=== PATIENT | male | born 1965 | race Caucasian/White ===

== ENCOUNTER 2018-02-28 07:32 | Day surgery (SDC) | payer OTHER ==
[~2018-02-28] VITALS: Ht 175.3 cm; Wt 100.2 kg
[~2018-02-28 07:32] MED LIST: HYDACE5; HYDACE5 PO; LEVFLO500 PO; LISI20 PO; OXYACE5T PO; TYLENOL COLD
[2018-02-28] MEDS ORDERED: ACID REDUCER 1150 MG (07:55)
[2018-02-28] MEDS ORDERED: IBUP400 (07:56)
== END 2018-02-28 09:24 | disposition home or self-care (01) ==
LOC: ORSCSDS 07:32
PROVIDERS: Internal Medicine Gastroenterology
PROC: 0DB68ZX Excision of Stomach, Via Natural or Artificial Opening Endoscopic, Diagnostic (ICD-10-PCS; principal; 2018-02-28 08:45)
DX: R10.13 Epigastric pain (principal); K22.10 Ulcer of esophagus without bleeding; K44.9 Diaphragmatic hernia without obstruction or gangrene; R19.7 Diarrhea, unspecified; I10 Essential (primary) hypertension; E78.5 Hyperlipidemia, unspecified; Z79.899 Other long term (current) drug therapy
CPT/HCPCS: 88305; 88342; J0330; J1980; J2405; J7120

== ENCOUNTER 2020-08-05 22:57 | Emergency (ER) | payer OTHER ==
[~2020-08-05] VITALS: Ht 175.3 cm; Wt 104.3 kg
[~2020-08-05 22:57] MED LIST changes: +ACID REDUCER 1150 MG; +IBUP400
[2020-08-05] MEDS ORDERED: LISI20 PO (23:08)
== END 2020-08-05 23:31 | disposition home or self-care (01) ==
LOC: ER 22:57
DX: M54.2 Cervicalgia (principal); Z79.899 Other long term (current) drug therapy
CPT/HCPCS: 96372; 99283-25; J1885

== ENCOUNTER 2021-08-11 08:03 | Day surgery (SDC) | payer OTHER ==
[~2021-08-11] VITALS: Ht 172.7 cm; Wt 103.7 kg
[2021-08-11] MEDS ORDERED: Methocarbamol750 MG PO (08:29)
[2021-08-11] MEDS ORDERED: HYDROCODONE-AC1 EAC7 PO (08:30)
--- NOTE | 2021-08-11 11:43 | NUR ---
08/11/21 1143 Stalin Piedra FEMBONITA BLOCK PLACED PRIOR TO PATIENT ARRIVING IN THE OR.
--- NOTE | 2021-08-11 12:41 | NUR ---
08/11/21 1241 RAMÓN MANCINI PT IS SLOW TO WAKE FULLY/ DISORIENTED UPON WAKING FOR MOR E THAN 20 MIN. VITALS ARE STABLE. SEE VITAL STRIP. PT ON 10 L O2 FACE TENT
--- NOTE | 2021-08-11 13:06 | NUR ---
08/11/21 1306 Radha Velasquez RECEIVED REPORT FROM [facility].TCR. PT IS RESITN GCOMFORTABLY IN RECLINER, GIRLFRIEND IS AT CHAIRSIDE. PT ON 2L OXYGEN VIA NC.
== END 2021-08-11 13:55 | disposition home or self-care (01) ==
LOC: ORSCSDS 08:03
PROVIDERS: Orthopaedic Surgery
PROC: 0MRN47Z Replacement of Right Knee Bursa and Ligament with Autologous Tissue Substitute, Percutaneous Endoscopic Approach (ICD-10-PCS; principal; 2021-08-11 09:15)
PROC: 0SQC4ZZ Repair Right Knee Joint, Percutaneous Endoscopic Approach (ICD-10-PCS; principal; 2021-08-11 09:15)
DX: S83.511A Sprain of anterior cruciate ligament of right knee, initial encounter (principal); S83.281A Other tear of lateral meniscus, current injury, right knee, initial encounter; I10 Essential (primary) hypertension; E66.9 Obesity, unspecified; Z68.34 Body mass index [BMI] 34.0-34.9, adult; Z79.899 Other long term (current) drug therapy
CPT/HCPCS: A9270; C1713; C1762; J0171; J0690; J1100; J1885; J2250; J2405; J2704; J3010; J7120